=== PATIENT | female | born 1970 | race African-American/Black ===

== ENCOUNTER 2017-03-14 14:20 | Emergency (ER) | payer MEDICARE, MEDICAID ==
[2017-03-14] MEDS ORDERED: Losartan Potassium 25 MG TAB ONE (14:56)
[2017-03-14] MEDS ORDERED: Hydrochlorothiazide 25 MG TAB ONE (14:56)
[2017-03-14] MEDS ORDERED: Acetaminophen 500 MG TAB ONE (14:56)
== END 2017-03-14 15:47 | disposition home or self-care (01) ==
LOC: MADERS 14:20
DX: I10 Essential (primary) hypertension (principal); G70.00 Myasthenia gravis without (acute) exacerbation; Z79.899 Other long term (current) drug therapy
CPT/HCPCS: 99283

== ENCOUNTER 2017-07-17 18:15 | Emergency (ER) | payer MEDICARE, MEDICAID ==
[2017-07-17] MEDS ORDERED: Ketorolac Tromethamine 30 MG/ML VIAL ONE (18:37)
[2017-07-17] MEDS ORDERED: Promethazine HCl 25 MG/ML VIAL ONE (18:37)
== END 2017-07-17 19:05 | disposition home or self-care (01) ==
LOC: MADERS 18:15
DX: G43.919 Migraine, unspecified, intractable, without status migrainosus (principal); I10 Essential (primary) hypertension; Z79.899 Other long term (current) drug therapy
CPT/HCPCS: 96372; J1885; J2550

== ENCOUNTER 2017-11-02 07:05 | Outpatient (CLI) | payer MEDICARE, MEDICAID ==
[2017-11-02 09:11] LABS: ALT (SGPT) 11 U/L (8-55); AST (SGOT) 15 U/L (5-34); Albumin 4.1 g/dL (3.5-5.0); Alkaline Phosphatase 91 U/L (40-150); Anion Gap 14 mmol/L (10-20); BUN (Urea Nitrogen) 16 mg/dL (7.0-18.7); Bilirubin, Direct 0.3 mg/dL (0.1-0.3); Bilirubin, Total 0.6 mg/dL (0.2-1.2); Calc. Creatinine Clearance 0 mL/min (70-130); Carbon Dioxide 24 mmol/L (22-29); Cardiac Risk 2.2 (Less than 4.5); Chloride 104 mmol/L (98-107); Cholesterol 198 mg/dl (< 200 Desired); Estimated GFR-MDRD 85; Glucose 90 mg/dL (70-105); HDL Cholesterol 91 mg/dL (>60 Neg Risk); LDL Cholesterol, Calculated 92 mg/dL; Protein, Total 7.5 g/dL (6.0-8.3); Sodium 138 mmol/L (136-145); Triglycerides 74 mg/dL (Less than 150)
--- NOTE | 2017-11-02 09:27 | RAD ---
RADIOGRAPH RIGHT SHOULDER TWO VIEWS: History: 47-year-old female with chronic right shoulder pain. No recent trauma. FINDINGS: Degenerative changes at the glenohumeral joint and AC joint are minimal. No fracture or dislocation. No destructive osseous lesion. No abnormal soft tissue calcifications. IMPRESSION: No major pathology identified. POS: [facility]
--- NOTE | 2017-11-02 09:35 | RAD ---
LUMBAR SPINE RADIOGRAPHIC SERIES THREE VIEWS: Comparison: 09-10-08 Indication: Chronic low back pain without recent trauma. FINDINGS: There is right convexity curvature of the lumbar spine centered at the L3 level. No compression fract ure or significant subluxation. The patient is slightly rotated on the lateral view which does somewh at limit alignment evaluation. There is mild vascular calcification noted. Prominent multilevel facet sclerosis is seen. Phlebolith formation is seen over the pelvis. IMPRESSION: Right convexity curvature of the lumbar spine with degenerative change, notably at the facet joints. POS: ABI
[2017-11-02 09:43] LABS: Red Blood Cell (RBC) Count 3.92 mill/uL (4.20-5.40)
[2017-11-02 09:44] LABS: #Basophils 0.1 thou/uL (0.0-0.2); #Eosinphils 0.1 thou/uL (0.0-0.7); #Lymphocytes 3.4 thou/uL (1.20-3.40); #Monocytes 0.6 thou/uL (0.11-0.59); #Neutrophils 2.7 thou/uL (1.40-6.50); %Eosinophils 2.1 % (0.0-10.0); %Lymphocytes 48.8 % (21.0-51.0); %Neutrophils 39.1 % (42.0-75.0); Hemoglobin 11.8 g/dL (12.0-16.0); Mean Corpuscular HGB CONC 32.5 g/dL (32.0-36.0); Mean Corpuscular Volume 92.3 fL (81.0-99.0); Mean Platelet Volume 8.6 fL (7.4-10.4); Platelet Count 249 thou/uL (130-400); RBC Distribution Width 12.6 % (11.5-14.5)
== END 2017-11-02 07:06 | disposition home or self-care (01) ==
LOC: MADLABBHPM 07:05
PROVIDERS: ATTEND Family Medicine
DX: M54.5 Low back pain (principal); M25.511 Pain in right shoulder; G70.00 Myasthenia gravis without (acute) exacerbation; I10 Essential (primary) hypertension; M47.896 Other spondylosis, lumbar region; M43.8X6 Other specified deforming dorsopathies, lumbar region
CPT/HCPCS: 36415; 72100; 80048; 80061; 80076; 84443; 85025

== ENCOUNTER 2019-02-19 06:46 | Emergency (ER) | payer MEDICARE, MEDICAID | END 2019-02-19 07:40 | disposition home or self-care (01) | LOC: MADERS 06:46 | DX: J06.9 Acute upper respiratory infection, unspecified (principal); I10 Essential (primary) hypertension | CPT/HCPCS: 99283 ==

== ENCOUNTER 2019-03-19 08:11 | Outpatient (CLI) | payer MEDICARE, MEDICAID ==
[2019-03-19 08:56] LABS: #Basophils 0.1 thou/uL (0.0-0.2); #Eosinphils 0.1 thou/uL (0.0-0.7); #Monocytes 0.5 thou/uL (0.11-0.59); #Neutrophils 2.6 thou/uL (1.40-6.50); %Basophils 2.3 % (0.0-1.0); %Eosinophils 1.9 % (0.0-10.0); %Lymphocytes 47.4 % (21.0-51.0); %Monocytes 7.6 % (0.0-10.0); %Neutrophils 40.8 % (42.0-75.0); Hemoglobin 11.5 g/dL (12.0-16.0); Mean Corpuscular HGB CONC 32.3 g/dL (32.0-36.0); Mean Corpuscular Hemoglobin 29.1 pg (27.0-31.0); Mean Corpuscular Volume 90.1 fL (78.0-98.0); Mean Platelet Volume 8.6 fL (7.4-10.4); Platelet Count 236 thou/uL (130-400); RBC Distribution Width 12.7 % (11.5-14.5); Red Blood Cell (RBC) Count 3.96 mill/uL (4.20-5.40); White Blood Cell (WBC) Count 6.4 thou/uL (4.8-10.8)
[2019-03-19 09:07] LABS: ALT (SGPT) 13 U/L (8-55); AST (SGOT) 19 U/L (5-34); Albumin 4.3 g/dL (3.5-5.0); Alkaline Phosphatase 88 U/L (40-150); Anion Gap 17 mmol/L (10-20); BUN (Urea Nitrogen) 11 mg/dL (9.8-20.1); Bilirubin, Total 0.3 mg/dL (0.2-1.2); Calc. Creatinine Clearance 0 mL/min (70-130); Calcium 9.1 mg/dL (7.8-10.44); Carbon Dioxide 19 mmol/L (22-29); Cardiac Risk 2.3 (Less than 4.5); Chloride 108 mmol/L (98-107); Cholesterol 228 mg/dl (< 200 Desired); Estimated GFR-MDRD 88; Globulin 3.8 g/dL (2.4-3.5); Glucose 101 mg/dL (70-105); HDL Cholesterol 98 mg/dL (>60 Neg Risk); LDL Cholesterol, Calculated 116 mg/dL; Potassium 3.7 mmol/L (3.5-5.1); Protein, Total 8.1 g/dL (6.0-8.3); Sodium 140 mmol/L (136-145); Triglycerides 72 mg/dL (Less than 150)
[2019-03-19 10:24] LABS: Amphetamine Not Detected (NotDetected); Barbiturates Screen Not Detected (NotDetected); Benzodiazepine Screen Not Detected (NotDetected); Cocaine Metabolite Screen Not Detected (NotDetected); Medtox Control Line Valid? VALID (VALID); Methadone Not Detected (NotDetected); Methamphetamine Not Detected (NotDetected); Opiate Screen Not Detected (NotDetected); Oxycodone Screen Not Detected (NotDetected); Phencyclidine (PCP) Not Detected (NotDetected); THC/Cannabinoid Screen Not Detected (NotDetected); Tricyclic Screen Not Detected (NotDetected)
== END 2019-03-19 08:12 | disposition home or self-care (01) ==
LOC: MADLABBHPM 08:11
PROVIDERS: ATTEND Family Medicine
DX: Z51.81 Encounter for therapeutic drug level monitoring (principal); I10 Essential (primary) hypertension; E66.3 Overweight; M54.5 Low back pain; Z79.899 Other long term (current) drug therapy
CPT/HCPCS: 36415; 80053; 80061; 80306; 84443; 85025

== ENCOUNTER 2019-05-05 02:59 | Emergency (ER) | payer MEDICARE, MEDICAID ==
[2019-05-05] MEDS ORDERED: Acetaminophen 500 MG TAB ONE (03:25)
== END 2019-05-05 03:34 | disposition home or self-care (01) ==
LOC: MADERS 02:59
DX: R55 Syncope and collapse (principal); F10.129 Alcohol abuse with intoxication, unspecified; I10 Essential (primary) hypertension; G43.909 Migraine, unspecified, not intractable, without status migrainosus
CPT/HCPCS: 93005

== ENCOUNTER 2021-03-31 09:00 | Outpatient (CLI) | payer MEDICAID | END 2021-03-31 09:01 | disposition home or self-care (01) | LOC: MADRAD 09:00 | PROVIDERS: ATTEND Family Medicine | DX: R07.89 Other chest pain (principal) | CPT/HCPCS: 71046 ==

== ENCOUNTER 2022-01-19 10:13 | Emergency (ER) | payer MEDICARE, MEDICAID ==
[2022-01-19] MEDS ORDERED: Ondansetron ODT 4 MG TAB ONE (10:57)
[2022-01-19 21:34] LABS: SARS-CoV-2 PCR by NAA Not Detected (NotDetected)
== END 2022-01-19 11:50 | disposition home or self-care (01) ==
LOC: MADERS 10:13
DX: B34.9 Viral infection, unspecified (principal); Z20.822 Contact with and (suspected) exposure to COVID-19; I10 Essential (primary) hypertension; Z79.899 Other long term (current) drug therapy
CPT/HCPCS: 87804 ×2; U0003; U0005; 99283; Q0162

== ENCOUNTER 2022-08-01 15:34 | Emergency (ER) | payer MEDICARE, MEDICAID | END 2022-08-01 16:45 | disposition left against medical advice (07) | LOC: MADERS 15:34 | DX: Z53.21 Procedure and treatment not carried out due to patient leaving prior to being seen by health care provider (principal) ==

== ENCOUNTER 2022-08-08 15:08 | Outpatient (CLI) | payer MEDICARE, MEDICAID | END 2022-08-08 15:09 | disposition home or self-care (01) | LOC: MADCT 15:08 | PROVIDERS: ATTEND Family Medicine | DX: J32.9 Chronic sinusitis, unspecified (principal) ==

== ENCOUNTER 2022-12-26 14:34 | Outpatient (CLI) | payer MEDICARE, MEDICAID ==
[2022-12-26 14:45] LABS: #Basophils 0.1 thou/uL (0.0-0.2); #Lymphocytes 2.5 thou/uL (1.20-3.40); #Monocytes 0.4 thou/uL (0.11-0.59); #Neutrophils 5.4 thou/uL (1.40-6.50); %Basophils 1.3 % (0.0-1.0); %Eosinophils 0.3 % (0.0-10.0); %Monocytes 4.3 % (0.0-10.0); %Neutrophils 64.2 % (42.0-75.0); Hemoglobin 12.7 g/dL (12.0-16.0); Mean Corpuscular HGB CONC 32.1 g/dL (32.0-36.0); Mean Corpuscular Hemoglobin 31.8 pg (27.0-31.0); Mean Corpuscular Volume 99.2 fl (78.0-98.0); Mean Platelet Volume 9.2 fL (7.4-10.4); Platelet Count 284 10x3/uL (130-400); RBC Distribution Width 12.7 % (11.5-14.5); Red Blood Cell (RBC) Count 3.99 mill/uL (4.20-5.40); White Blood Cell (WBC) Count 8.4 10x3/uL (4.8-10.8)
[2022-12-26 15:07] LABS: ALT (SGPT) 19 U/L (8-55); AST (SGOT) 35 U/L (5-34); Albumin 4.6 g/dL (3.5-5.0); Alkaline Phosphatase 75 U/L (40-110); Anion Gap 15 mmol/L (10-20); BUN (Urea Nitrogen) 11 mg/dL (9.8-20.1); Bilirubin, Total 0.4 mg/dL (0.2-1.2); Calc. Creatinine Clearance 0 mL/min (70-130); Calcium 9.8 mg/dL (7.8-10.44); Carbon Dioxide 25 mmol/L (22-29); Chloride 103 mmol/L (98-107); Estimated GFR 80; Globulin 3.8 g/dL (2.4-3.5); Glucose 94 mg/dL (70-105); Potassium 3.9 mmol/L (3.5-5.1); Protein, Total 8.4 g/dL (6.0-8.3); Sodium 139 mmol/L (136-145)
== END 2022-12-26 14:35 | disposition home or self-care (01) ==
LOC: MADLABBHPM 14:34 → MADLAB 14:35
PROVIDERS: ATTEND Internal Medicine
DX: I10 Essential (primary) hypertension (principal)
CPT/HCPCS: 80053; 85025

== ENCOUNTER 2023-02-15 16:05 | Outpatient (CLI) | payer MEDICARE, MEDICAID | END 2023-02-15 16:06 | disposition home or self-care (01) | LOC: MADRAD 16:05 | PROVIDERS: ATTEND Internal Medicine | DX: K63.9 Disease of intestine, unspecified (principal) | CPT/HCPCS: 74018 ==

== ENCOUNTER 2023-08-23 12:08 | Outpatient (CLI) | payer MEDICARE, MEDICAID ==
[2023-08-23 12:50] LABS: Anion Gap 15 mmol/L (10-20); BUN (Urea Nitrogen) 6 mg/dL (9.8-20.1); Calc. Creatinine Clearance 0 mL/min (70-130); Calcium 9.8 mg/dL (7.8-10.44); Carbon Dioxide 24 mmol/L (22-29); Chloride 104 mmol/L (98-107); Estimated GFR 90; Glucose 102 mg/dL (70-105); Potassium 3.8 mmol/L (3.5-5.1); Sodium 139 mmol/L (136-145)
== END 2023-08-23 12:09 | disposition home or self-care (01) ==
LOC: MADLAB 12:08
PROVIDERS: ATTEND Internal Medicine
DX: U07.1 COVID-19 (principal); R19.7 Diarrhea, unspecified
CPT/HCPCS: 36415; 71046; 80048; 83735

== ENCOUNTER 2025-05-14 14:38 | Outpatient (CLI) | payer MEDICARE, MEDICAID | END 2025-05-14 14:39 | disposition home or self-care (01) | LOC: MADRAD 14:38 | PROVIDERS: ATTEND Family Medicine | DX: M41.9 Scoliosis, unspecified (principal); M19.011 Primary osteoarthritis, right shoulder; M47.812 Spondylosis without myelopathy or radiculopathy, cervical region; M47.814 Spondylosis without myelopathy or radiculopathy, thoracic region; M47.816 Spondylosis without myelopathy or radiculopathy, lumbar region | CPT/HCPCS: 72072; 72100 ==